=== PATIENT | male | born 1975 | race Caucasian/White ===

== ENCOUNTER 2025-04-15 19:03 | Emergency (ER) | payer OTHER ==
[~2025-04-15] VITALS: Ht 170.2 cm; Wt 97.3 kg
[2025-04-15 19:35] VITALS: TEMP 98.1
[2025-04-15] MEDS: ACETAMINOPHEN 500 MG TABLET PO ONE (22:47)
[2025-04-15 23:18] LABS: PLATELET COUNT (AUTO) 223 K/uL (150-450); RED BLOOD CELL COUNT(AUTO) 4.90 MIL/uL (4.50-5.90); RED CELL DISTRIBUTION WIDTH 14.2 % (11.5-14.5); WHITE BLOOD COUNT (AUTO) 8.4 K/uL (4.5-11.0)
[2025-04-15 23:27] LABS: CALCIUM, TOTAL 8.6 mg/dL (8.8-10.5); CREATININE 1.02 mg/dL (0.60-1.30); GLOMERULAR FILTR. RATE CALC > 60 mL/min (>60); GLUCOSE,RANDOM 87 mg/dL (70-110); SODIUM SERUM 141 mmol/L (136-145); UREA NITROGEN, BLOOD 17 mg/dL (7-18)
[2025-04-15 23:44] VITALS: BP 140/93; PULSE 83; RESP 16; O2SAT 97
[2025-04-15] MEDS ORDERED: HYDR25TA2 PO (23:59)
== END 2025-04-16 00:27 | disposition home or self-care (01) ==
LOC: EMS 19:06
DX: I10 Essential (primary) hypertension (principal); R51.9 Headache, unspecified
CPT/HCPCS: 80048; 85025; 99283